=== PATIENT | female | born 1990 | race Two or more races ===

== ENCOUNTER 2021-12-21 12:09 | Emergency (ER) | payer MEDICAID, OTHER ==
[~2021-12-21] VITALS: Ht 167.6 cm; Wt 99.6 kg
[2021-12-21 13:11] VITALS: BP 126/84
== END 2021-12-21 17:47 | disposition left against medical advice (07) ==
LOC: ER 12:09
DX: S61.011A Laceration without foreign body of right thumb without damage to nail, initial encounter (principal); Z53.21 Procedure and treatment not carried out due to patient leaving prior to being seen by health care provider; W26.0XXA Contact with knife, initial encounter; Y93.89 Activity, other specified; Y92.090 Kitchen in other non-institutional residence as the place of occurrence of the external cause; Y99.8 Other external cause status